=== PATIENT | male | born 1960 | race Caucasian/White ===

== ENCOUNTER 2016-11-14 10:59 | Emergency (ER) | payer MEDICAID, MEDICARE ==
--- NOTE | 2016-11-14 11:08 | Emergency Department Record ---
History of Present Illness - General Stated Complaint: BRE Time Seen by Provider: 11/14/16 11:00 Source: Patient Mode of Arrival: Ambulatory Limitations: No limitations - History of Present Illness Initial Comments: 56 yo male presents with cough and shortness of breath for several days. He is a smoker with COPD. He has not been to his doctor in [place] for a long time. His sister states he has run out of his medications. He has not had them for a few months. His cough is productive. No blood. He has pain with cough, breathing and activity. He has been gradually worsening over several days. No blood in the sputum. He states he does not fill his prescriptions for financial reasons Complaint: Pain with inspiration, Shortness of breath -: Days(s) Severity: Severe Quality: Aching Consistency: Constant Improves With: Nothing Worsens With: Coughing Known History Of: COPD Context: Recent illness Associated Symptoms: Cough Treatments Prior to Arrival: None - Related Data Home Oxygen Therapy: No Home Medications Medication Instructions Recorded Confirmed Last Taken Fluticasone/Salmeterol [Advair 1 puff IH BID 11/14/16 11/14/16 Unknown 250-50 Diskus] Montelukast Sodium [Singulair] 10 mg PO QHS 11/14/16 11/14/16 Unknown Previous Rx's Medication Instructions Recorded Azithromycin [Zithromax] 250 mg PO DAILY #4 tablet 11/14/16 Benzonatate [Tessalon Perle] 100 mg PO Q6H #20 capsule 11/14/16 Prednisone [Prednisone 20Mg] 20 mg PO BID #10 tab 11/14/16 Allergies Allergy/AdvReac Type Severity Reaction Status Date / Time No Known Drug Allergies Allergy Verified 11/14/16 11:22 Review of Systems Constitutional: Denies: Chills, Fever, Malaise, Weakness Eyes: Denies: Eye discharge, Eye pain, Photophobia, Vision change ENT: Reports: Congestion, Throat pain Respiratory: Reports: Cough, Dyspnea, Wheezes. Denies: Hemoptysis, Stridor Cardiovascular: Reports: Chest pain (with cough). Denies: Palpitations, Syncope Endocrine: Denies: Fatigue, Polydipsia, Polyuria Gastrointestinal: Denies: Abdominal pain, Diarrhea, Nausea, Vomiting Genitourinary: Denies: Dysuria, Frequency, Hematuria, Urgency Musculoskeletal: Denies: Arthralgia, Back pain, Myalgia Skin: Denies: Bruising, Change in color, Rash Neurological: Denies: Headache, Numbness, Weakness Psychiatric: Denies: Anxiety Hematological/Lymphatic: Denies: Blood Clots, Easy bleeding, Easy bruising, Swollen glands Past Medical History - SOCIAL HISTORY Smoking Status: Light tobacco smoker (<10/day) - RESPIRATORY Hx Respiratory Disorders: Yes Hx COPD: Yes - CARDIOVASCULAR Hx Cardio Disorders: No - NEURO Hx Neuro Disorders: No - GI Hx GI Disorders: No - Hx Genitourinary Disorders: Yes Hx Bladder Problem: Yes (Tumor removed) - ENDOCRINE Hx Endocrine Disorders: No - MUSCULOSKELETAL Hx Musculoskeletal Disorders: Yes Hx Back Injury: Yes - PSYCH Hx Psych Problems: Yes Hx Anxiety: Yes (now resolved) Hx Suicide Attempt: Yes - HEMATOLOGY/ONCOLOGY Hx Hematology/Oncology Disorders: No Family Medical History Hx Cancer: Mother, Brother/Sister Hx Diabetes: Father Hx Heart Disease: Mother Hx HTN: Mother Hx Kidney Disease: Brother/Sister Hx Resp Disorders: Father Physical Exam - General General Appearance: Alert, Oriented x3, Cooperative, Mild distress, Anxious Limitations: No limitations - Head Head exam: Atraumatic, Normocephalic, Normal inspection - Eye Eye exam: Normal appearance. negative: Conjunctival injection, Periorbital swelling - ENT ENT exam: Normal exam, Mucous membranes moist Ear exam: Normal external inspection Nasal Exam: Normal inspection Mouth exam: Normal external inspection - Neck Neck exam: Normal inspection. negative: Lymphadenopathy, Tenderness - Respiratory Respiratory exam: Accessory muscle use, Chest wall tenderness, Decreased breath sounds, Prolonged expiratory, Respiratory distress, Rhonchi, Wheezes. negative : Normal lung sounds bilaterally - Cardiovascular Cardiovascular Exam: Regular rate, Normal rhythm, Normal heart sounds Peripheral Pulses: 2+: Radial (R), Radial (L) - GI/Abdominal GI/Abdominal exam: negative: Tenderness - Rectal Rectal exam: Deferred - exam: Deferred - Extremities Extremities exam: Normal inspection, Full ROM, Normal capillary refill. negative: Pedal edema, Tenderness - Back Back exam: Reports: Normal inspection, Full ROM. Denies: CVA tenderness (R), CVA tenderness (L), Muscle spasm, Paraspinal tenderness, Rash noted, Tenderness , Vertebral tenderness - Neurological Neurological exam: Alert, Normal gait, Oriented X3 - Psychiatric Psychiatric exam: Anxious - Skin Skin exam: Dry, Intact, Normal color, Warm Course - Reevaluation(s) Reevaluation #1: EKG 10:58 NSR rate at 98, intervals normal, axis normal, ST NS changes. no ST elevation. no old ekg. 11/14/16 11:08 11/14/16 11:17 After a treatment the patient is doing much better His room air saturation is 97% 11/14/16 11:45 No acute changes on the CBC or CMP The D-dimer is normal at less than 0.50 11/14/16 12:11 The Troponin is negative after several days of symptoms 11/14/16 12:26 The patient is feeling much better and he states he is ready for DC His room air saturation is 95% He is fully conversational without dyspnea We discussed home care, home medications, reasons for a return to the ED immediately and close follow up with the PCP Medical Decision Making - Lab Data Result diagrams: 11/14/16 11:00 11/14/16 11:00 Disposition Disposition: Discharge Clinical Impression: COPD exacerbation Disposition: Home, Self-Care Condition: (1) Good Instructions: COPD (Chronic Obstructive Pulmonary Disease) (ED) Additional Instructions: Return immediately if short of breath, fever or any new concerns Call your doctor for close followup of this ER visit No smoking Take the Prednisone, Zithromax, and Tessalon as directed Prescriptions: Azithromycin [Zithromax] 250 mg PO DAILY #4 tablet Benzonatate [Tessalon Perle] 100 mg PO Q6H #20 capsule Prednisone [Prednisone 20Mg] 20 mg PO BID #10 tab Referrals: Moriah Haney, L.M.S.WDenny [Director [facility] [employer] [facility]] - Forms: Patient Portal Access Time of Disposition: 12:32 Quality - Quality Measures Quality Measures: N/A - Blood Pressure Screening Does Patient Have Any of the Following: No Blood Pressure Classification: Normal BP Reading Systolic Measurement: 116 Diastolic Measurement: 73 Screening for High Blood Pressure: < Normal BP, F/U Not Required > [G8783] Pre-Hypertensive Follow-up Interventions: Referral to alternative/primary care provider.
[2016-11-14] MEDS: IPRATROPIUM/ALBUTEROL (0.5MG/3MG) NEB INH ONE (11:13)
[2016-11-14] MEDS: METHYLPREDNISOLONE PF 125MG/VIAL IVP ONE (11:13)
[2016-11-14 11:21] LABS: BASO % 0.2 % (0-6); GRAN % 74.6 % (47-80); HEMATOCRIT 47.7 % (42.0-52.0); HEMOGLOBIN 16.5 gm/dl (14.0-18.0); LYMPH % 14.3 % (16-45); MEAN CELL VOLUME 82.7 fl (81-97); MEAN CORPUSCULAR HGB CONC 34.6 g/dl (32-36); MEAN PLATELET VOLUME 9.9 fl (7.4-10.4); MONO % 7.9 % (0-9); PLATELET COUNT 320 K/uL (130-400); RED BLOOD COUNT 5.77 M/uL (4.40-5.70); RED CELL DISTRIBUTION WIDTH 14.2 % (11.5-14.5); WHITE BLOOD COUNT W/O DIFF 11.6 K/uL (4.2-12.2)
[2016-11-14] MEDS: AZITHROMYCIN 500 MG TABLET PO ONE (11:28)
[2016-11-14] MEDS: BENZONATATE 100 MG CAPSULE PO ONE ×2 (11:28→15:50)
[2016-11-14 11:30] LABS: PARTIAL THROMBOPLASTIN TIME 33.4 SECONDS (24.5-39.1)
[2016-11-14 11:33] LABS: MEAN CORPUSCULAR HEMOGLOBIN 28.5 pg (27-33)
[2016-11-14 11:38] LABS: ALB/GLOB RATIO 1.1 (1.1-1.8); ALBUMIN 3.9 g/dL (4.0-5.0); ALKALINE PHOSPHATASE 92 U/L (40-129); ALT/SGPT 9 U/L (<41); AST/SGOT 12 U/L (10.0-50.0); BLOOD UREA NITROGEN 12 mg/dL (6-20); CREATININE 0.7 mg/dL (0.7-1.2); EST GLOMERULAR FILTRATION RATE > 60 mL/min; GLUCOSE,RANDOM 98 mg/dL (74-109); TOTAL PROTEIN 7.5 g/dL (6.6-8.7)
[2016-11-14] MEDS: IPRATROPIUM/ALBUTEROL 4 GM INH INH ONE (11:40)
[2016-11-14 11:46] LABS: TROPONIN I < 0.30 ng/mL (0.00-0.300)
[2016-11-14] MEDS: AZITHROMYCIN 250 MG TABLET PO ONE (15:50)
[2016-11-14] MEDS: PREDNISONE 20 MG TAB PO ONE (15:51)
--- NOTE | 2016-11-15 11:01 | RADIOLOGY REPORT ---
EXAM: CHEST, FRONTAL VIEW HISTORY: CHEST PAIN. TECHNIQUE: A single frontal view of the chest was obtained. Comparison: 03/22/13 chest. FINDINGS: The heart size is normal. There is underlying emphysema. Osteopenia. The lungs appear clear. No pneumothorax. IMPRESSION: EMPHYSEMA. NO ACUTE CARDIOPULMONARY PROCESS. JOB NUMBER: [id number] MTDD
== END 2016-11-14 13:05 | disposition home or self-care (01) ==
LOC: ER 10:59
DX: J44.1 Chronic obstructive pulmonary disease with (acute) exacerbation (principal); R06.02 Shortness of breath; F17.210 Nicotine dependence, cigarettes, uncomplicated
CPT/HCPCS: 99284 ×2; 96374; 85025; 85730; 84484; 80053; 85379; 71010; 94640 ×2; 93005; 93010; J7512; J2930

== ENCOUNTER 2017-07-25 09:20 | Emergency (ER) | payer MEDICARE ==
[2017-07-25] MEDS ORDERED: 0.9 % SODIUM CHLORIDE 1,000 ML BAG IV ONE (09:25)
[2017-07-25] MEDS ORDERED: LORAZEPAM 2 MG/ML VIAL IV ONE (09:26)
[2017-07-25] MEDS ORDERED: ONDANSETRON HCL IV 4 MG/2 ML VIAL IVP ONE (09:26)
[2017-07-25] MEDS ORDERED: IPRATROPIUM/ALBUTEROL (0.5MG/3MG) NEB INH ONE (09:26)
[2017-07-25] MEDS ORDERED: METHYLPREDNISOLONE PF 125MG/VIAL IVP ONE (09:26)
--- NOTE | 2017-07-25 09:32 | Emergency Department Record ---
History of Present Illness - General Chief Complaint: Cough Stated Complaint: COUGH Source: Patient Mode of Arrival: Ambulatory Limitations: No limitations - History of Present Illness Initial Comments: 57 yo male presents with two concerns. He has COPD. His cough has worsened over the last month. His is a life long smoker. No fevers or chest pain. His has yellow productive sputum. No blood in the sputum. Additionally he had Dr Shah as a PCP. His PCP recently closed his practice and not longer prescribes narcotics. Mr Palumbo has been on Oxycontin and Methadone for many years. His last dose was one week ago. He is weak, shaky, poor appetite, and anxious. No confusion. He has not been able to get a new PCP due to the narcotic issues. MD Complaint: Cough, Other (Narcotic withdrawal) -: Week(s) Severity: Moderate Quality: Other Consistency: Constant Improves With: Nothing Worsens With: Other (smoking) Context: Other (Out of medications) Associated Symptoms: Chills, Cough Treatments Prior to Arrival: Other - Related Data Previous Rx's Medication Instructions Recorded Prednisone [Prednisone 20Mg] 20 mg PO BID #10 tab 11/14/16 Azithromycin [Zithromax] 250 mg PO DAILY #6 tablet 07/25/17 Lorazepam [Ativan] 1 mg PO Q8H PRN #8 tablet 07/25/17 Ondansetron [Zofran Odt] 4 mg PO Q8H #15 tab.rapdis 07/25/17 Allergies Allergy/AdvReac Type Severity Reaction Status Date / Time No Known Drug Allergies Allergy Verified 07/25/17 09:22 Review of Systems Constitutional: Reports: Chills, Malaise, Weakness Eyes: Denies: Photophobia, Vision change ENT: Denies: Congestion, Throat pain Respiratory: Reports: Cough, Dyspnea, Wheezes Cardiovascular: Denies: Chest pain, Palpitations, Syncope Endocrine: Reports: Fatigue Gastrointestinal: Reports: Nausea, Vomiting. Denies: Abdominal pain, Constipation, Diarrhea, Hematemesis, Hematochezia Genitourinary: Denies: Discharge, Dysuria, Frequency, Hematuria Musculoskeletal: Reports: Back pain (chronic). Denies: Arthralgia, Myalgia Skin: Denies: Bruising, Change in color, Rash Neurological: Reports: Tremors, Weakness Psychiatric: Reports: Anxiety Hematological/Lymphatic: Denies: Easy bleeding, Easy bruising, Swollen glands Past Medical History - SOCIAL HISTORY Smoking Status: Light tobacco smoker (<10/day) - RESPIRATORY Hx Respiratory Disorders: Yes Hx COPD: Yes - CARDIOVASCULAR Hx Cardio Disorders: No - NEURO Hx Neuro Disorders: No - GI Hx GI Disorders: No - Hx Genitourinary Disorders: Yes Hx Bladder Problem: Yes (Tumor removed) - ENDOCRINE Hx Endocrine Disorders: No - MUSCULOSKELETAL Hx Musculoskeletal Disorders: Yes Hx Back Injury: Yes - PSYCH Hx Psych Problems: Yes Hx Anxiety: Yes (now resolved) Hx Suicide Attempt: Yes - HEMATOLOGY/ONCOLOGY Hx Hematology/Oncology Disorders: No Family Medical History Hx Cancer: Mother, Brother/Sister Hx Diabetes: Father Hx Heart Disease: Mother Hx HTN: Mother Hx Kidney Disease: Brother/Sister Hx Resp Disorders: Father Physical Exam - General General Appearance: Alert, Oriented x3, Cooperative, No acute distress Limitations: No limitations - Head Head exam: Atraumatic, Normal inspection - Eye Eye exam: Normal appearance, Conjunctival injection - ENT ENT exam: Normal exam, Mucous membranes moist Ear exam: Normal external inspection Nasal Exam: Normal inspection Mouth exam: Normal external inspection - Neck Neck exam: Normal inspection, Full ROM. negative: Tenderness - Respiratory Respiratory exam: Decreased breath sounds, Prolonged expiratory, Wheezes. negative: Normal lung sounds bilaterally, Accessory muscle use, Respiratory distress, Rhonchi, Stridor - Cardiovascular Cardiovascular Exam: Regular rate, Normal rhythm, Normal heart sounds Peripheral Pulses: 2+: Radial (R), Radial (L) - GI/Abdominal GI/Abdominal exam: Soft. negative: Tenderness - Rectal Rectal exam: Deferred - exam: Deferred - Extremities Extremities exam: Normal inspection, Full ROM, Normal capillary refill. negative: Tenderness - Back Back exam: Denies: CVA tenderness (R), CVA tenderness (L) - Neurological Neurological exam: Alert, CN II-XII intact, Oriented X3. negative: Altered, Motor sensory deficit - Psychiatric Psychiatric exam: Anxious - Skin Skin exam: Dry, Intact, Normal color, Warm Course - Reevaluation(s) Reevaluation #1: The vitals were reviewed. HR 105. 07/25/17 09:34 07/25/17 10:24 No acute changes on the labs 07/25/17 10:37 The patient is feeling much better He has been off narcotics one week. He has been through the worst expected period of withdrawal. He has seen a [facility] for intake into a new clinic. He will follow up with them. He will be given a limited Rx for Ativan, Zofran, and antibiotic for his cough. His vitals are improved. He clinically does not appear to be actively withdrawing. Stable for DC 07/25/17 10:45 He reports to me he has all his COPD medications Medical Decision Making - Lab Data Result diagrams: 07/25/17 09:40 07/25/17 09:40 Disposition Disposition: Discharge Clinical Impression: COPD exacerbation Disposition: Home, Self-Care Condition: (1) Good Instructions: COPD (Chronic Obstructive Pulmonary Disease) (ED), Opioid Withdrawal (ED) Additional Instructions: Continue to follow up in the new doctor office Return or be seen if worse, vomiting or any concerns Take Tylenol or Motrin as directed for pain You may take the Ativan every 8 hours then next 24 hours then space out the doses to every 12 to 24 hours The Zofran is to be used as needed for nausea Prescriptions: Azithromycin [Zithromax] 250 mg PO DAILY #6 tablet Lorazepam [Ativan] 1 mg PO Q8H PRN #8 tablet PRN Reason: Anxiety Ondansetron [Zofran Odt] 4 mg PO Q8H #15 tab.rapdis Forms: Patient Portal Access Quality - Quality Measures Quality Measures: N/A - Blood Pressure Screening Does Patient Have Any of the Following: No Blood Pressure Classification: Hypertensive Reading Systolic Measurement: 130 Diastolic Measurement: 97 Screening for High Blood Pressure: < Pre-Hypertensive BP, F/U Documented > [ G8950] Pre-Hypertensive Follow-up Interventions: Referral to alternative/primary care provider.
[2017-07-25 09:48] LABS: BASO % 0.8 % (0-6); EOS % 2.8 % (0-6); GRAN % 66.6 % (47-80); HEMATOCRIT 50.5 % (42.0-52.0); HEMOGLOBIN 17.7 gm/dl (14.0-18.0); LYMPH % 21.9 % (16-45); MEAN CELL VOLUME 86.8 fl (81-97); MEAN CORPUSCULAR HEMOGLOBIN 30.4 pg (27-33); MEAN PLATELET VOLUME 9.6 fl (7.4-10.4); MONO % 7.9 % (0-9); PLATELET COUNT 336 K/uL (130-400); RED BLOOD COUNT 5.82 M/uL (4.40-5.70); RED CELL DISTRIBUTION WIDTH 13.4 % (11.5-14.5); WHITE BLOOD COUNT W/O DIFF 8.5 K/uL (4.2-12.2)
[2017-07-25 09:58] LABS: BLOOD UREA NITROGEN 11 mg/dL (6-20); CREATININE 0.7 mg/dL (0.7-1.2); EST GLOMERULAR FILTRATION RATE > 60 mL/min; TOTAL PROTEIN 7.6 g/dL (6.6-8.7)
[2017-07-25 10:00] LABS: GLUCOSE,RANDOM 118 mg/dL (74-109)
[2017-07-25 10:03] LABS: ALB/GLOB RATIO 1.7 (1.1-1.8); ALBUMIN 4.8 g/dL (4.0-5.0); ALKALINE PHOSPHATASE 69 U/L (40-129); ALT/SGPT 16 U/L (<41); AST/SGOT 16 U/L (10.0-50.0)
--- NOTE | 2017-07-26 14:18 | RADIOLOGY REPORT ---
EXAM: CHEST, TWO VIEWS HISTORY: COUGH FOR A MONTH. COPD. TECHNIQUE: PA and lateral views of the chest were obtained. Comparison: AP chest 11/24/16. FINDINGS: The heart is not enlarged. The lungs do appear hyperinflated suggesting underlying COPD. Some minor scattered interstitial prominence is similar to before and probably represents some fibrosis. No definite acute alveolar infiltrate identified. Hypertrophic spurring in the spine. Some stippled sclerosis in the left humeral head may be a small enchondroma or even bone infarct. IMPRESSION: 1. HYPERINFLATION CONSISTENT WITH COPD. 2. THERE IS PROBABLY SOME MILD SCATTERED FIBROSIS, BUT NO ACUTE ALVEOLAR INFILTRATE SEEN. 3. HYPERTROPHIC SPURRING IN THE SPINE. 4. SOME STIPPLED SCLEROSIS IN THE LEFT HUMERAL HEAD WHICH MAY BE A SMALL ENCHONDROMA OR BONE INFARCT. JOB NUMBER: [id number] [facility]
== END 2017-07-25 10:56 | disposition home or self-care (01) ==
LOC: ER 09:20
DX: J44.1 Chronic obstructive pulmonary disease with (acute) exacerbation (principal); R53.1 Weakness; F11.23 Opioid dependence with withdrawal; F17.210 Nicotine dependence, cigarettes, uncomplicated
CPT/HCPCS: 99284 ×2; 96374; 96375; 85025; 80053; 71046; 94640; J2405; J2060; J2930; J7030

== ENCOUNTER 2017-07-27 14:43 | Emergency (ER) | payer MEDICARE ==
[2017-07-27] MEDS ORDERED: ACETAMINOPHEN 1,000 MG/100 ML BTL IVPB ONE (15:08)
--- NOTE | 2017-07-27 15:15 | Emergency Department Record ---
History of Present Illness - General Chief Complaint: Difficulty Breathing Stated Complaint: BRE,PAIN ALL OVER Time Seen by Provider: 07/27/17 14:45 Source: Patient, Family Mode of Arrival: EMS Limitations: No limitations - History of Present Illness Initial Comments: The patient is here with his son do to going out for a walk about an hour ago and coming home and becoming very SOB. The patient states he thinks he overdid it with the walk. When he got home he fell to his knees on a carpeted floor and told his son he did not feel right. The patient also is having mild chest aching with the BRE but he states that is a chronic problem for him. He has had colored phlegm with the cough but that also is chronic at times with his COPD. The patient also is presently going thru the end of narcotic withdrawal due to running out of his Methadone about 10 days ago. He had been on it for years but was cut off recently. He was in the ER here 2 days ago with similar complaints as today and was discharged on a short course of Ativan. MD Complaint: Shortness of breath Onset/Timin -: Minutes(s) Known History Of: COPD, Other Associated Symptoms: Other Treatments Prior to Arrival: None - Related Data Home Oxygen Therapy: No Home Medications Medication Instructions Recorded Confirmed Last Taken Methadone HCl 10 mg PO ASDIR 07/27/17 07/27/17 Unknown Previous Rx's Medication Instructions Recorded Prednisone [Prednisone 20Mg] 20 mg PO BID #10 tab 11/14/16 Azithromycin [Zithromax] 250 mg PO DAILY #6 tablet 07/25/17 Lorazepam [Ativan] 1 mg PO Q8H PRN #8 tablet 07/25/17 Ondansetron [Zofran Odt] 4 mg PO Q8H #15 tab.rapdis 07/25/17 Allergies Allergy/AdvReac Type Severity Reaction Status Date / Time No Known Drug Allergies Allergy Verified 07/27/17 14:57 Travel Screening - Travel/Exposure Within Last 30 Days Have you traveled within the last 30 days?: No - Travel/Exposure Within Last Year Have you traveled outside the [place] in the last year?: No - Additonal Travel Details Have you been exposed to anyone with a communicable illness?: No - Travel Symptoms Symptom Screening: None Review of Systems Constitutional: Denies: Chills, Fever Eyes: Denies: Eye discharge ENT: Denies: Congestion Respiratory: Reports: Cough, Dyspnea. Denies: Hemoptysis, Stridor, Wheezes Cardiovascular: Reports: Dyspnea on exertion. Denies: Arrhythmia Endocrine: Reports: Fatigue Gastrointestinal: Denies: Abdominal pain Genitourinary: Denies: Dysuria Musculoskeletal: Denies: Arthralgia Past Medical History - SOCIAL HISTORY Smoking Status: Light tobacco smoker (<10/day) - RESPIRATORY Hx Respiratory Disorders: Yes Hx COPD: Yes - CARDIOVASCULAR Hx Cardio Disorders: No - NEURO Hx Neuro Disorders: No - GI Hx GI Disorders: No - Hx Genitourinary Disorders: Yes Hx Bladder Problem: Yes (Tumor removed) - ENDOCRINE Hx Endocrine Disorders: No - MUSCULOSKELETAL Hx Musculoskeletal Disorders: Yes Hx Back Injury: Yes - PSYCH Hx Psych Problems: Yes Hx Anxiety: Yes (now resolved) Hx Suicide Attempt: Yes - HEMATOLOGY/ONCOLOGY Hx Hematology/Oncology Disorders: No Family Medical History Any Significant Family History?: No Hx Cancer: Mother, Brother/Sister Hx Diabetes: Father Hx Heart Disease: Mother Hx HTN: Mother Hx Kidney Disease: Brother/Sister Hx Resp Disorders: Father Physical Exam - General General Appearance: Alert, Oriented x3, Cooperative, Anxious (mildly.) - Head Head exam: Atraumatic, Normocephalic, Normal inspection - Eye Eye exam: Normal appearance, PERRL, EOMI - ENT Throat exam: Normal inspection. negative: Tonsillar erythema, Tonsillar exudate - Neck Neck exam: Normal inspection, Full ROM. negative: Tenderness - Respiratory Respiratory exam: Normal lung sounds bilaterally. negative: Respiratory distress - Cardiovascular Cardiovascular Exam: Regular rate, Normal rhythm, Normal heart sounds - GI/Abdominal GI/Abdominal exam: Soft, Normal bowel sounds. negative: Tenderness - Extremities Extremities exam: Full ROM, Tenderness (There is very mild tenderness to the anterior knees bilaterally over the patellas with mild erythema. There is no joint effusion or ligamentous laxiety. ). negative: Normal inspection, Normal capillary refill - Neurological Neurological exam: Alert, Oriented X3. negative: Motor sensory deficit - Psychiatric Psychiatric exam: Anxious Course Vital Signs 07/27/17 14:46 Temperature 97.7 F Pulse Rate 94 H Respiratory 22 Rate Blood Pressure 139/93 Pulse Ox 98 - Reevaluation(s) Reevaluation #1: The patient is doing a lot better at this time. He is much more calm and no longer anxious. He states he feels much better presently and is basically back to normal except for his chronic pain syndrome. We will give him some Toradol for pain. 07/27/17 15:47 Reevaluation #2: The patient is resting comfortably and is feeling much better. He now believes he was just having a panic attack after getting back from his walk. I did explain to him that I wanted to observe him for 2 more hours in the ED and also check another set of cardiac enzymes. The patient is very cooperative but would like to leave. I did explain to him that he would need to leave AMA and he agreed. I explained to him that the risks of leaving are that he could go home and have an WA, stroke, become disabled and . The patient presently has proper decision making capacity and accepts the risks. He is to return to the ER at any time for recheck if needed. 07/27/17 16:52 Medical Decision Making - Data Complexity MDM Data: Labs Ordered and/or Reviewed, X-Ray Ordered and/or Reviewed, EKG Ordered and/or Reviewed - Lab Data Result diagrams: 07/27/17 14:50 07/27/17 14:50 - EKG Data -: EKG Interpreted by Me EKG: No Acute Changes, Normal EKG, Unchanged From Previous - Radiology Data Radiology results: Report reviewed (CXR; COPD with possible fibrosis, No change from old. Head CT: No acute changes.) Disposition Disposition: Discharge Clinical Impression: COPD exacerbation Disposition: Against Medical Advice Condition: (2) Stable Instructions: Dyspnea (ED) Additional Instructions: Please continue your regular medicines and take the Ativan if needed. Please see your family doctor CABRERA to have your multiple issues evaluated. Return to the ER for any chest pain, shortness of breath, fever, or difficulty breathing. Forms: Patient Portal Access Time of Disposition: 16:55 Quality - Quality Measures Quality Measures: N/A - Blood Pressure Screening View Details: Yes Does Patient Have Any of the Following: No Blood Pressure Classification: Pre-Hypertensive BP Reading Systolic Measurement: 135 Diastolic Measurement: 72 Screening for High Blood Pressure: < Pre-Hypertensive BP, F/U Documented > [ G8950] Pre-Hypertensive Follow-up Interventions: Referral to alternative/primary care provider.
[2017-07-27 15:21] LABS: BASO % 0.5 % (0-6); EOS % 1.5 % (0-6); GRAN % 68.6 % (47-80); HEMATOCRIT 48.3 % (42.0-52.0); HEMOGLOBIN 16.8 gm/dl (14.0-18.0); LYMPH % 22.2 % (16-45); MEAN CORPUSCULAR HEMOGLOBIN 30.3 pg (27-33); MEAN CORPUSCULAR HGB CONC 34.8 g/dl (32-36); MEAN PLATELET VOLUME 10.1 fl (7.4-10.4); MONO % 7.2 % (0-9); PLATELET COUNT 323 K/uL (130-400); RED BLOOD COUNT 5.55 M/uL (4.40-5.70); RED CELL DISTRIBUTION WIDTH 13.7 % (11.5-14.5); WHITE BLOOD COUNT W/O DIFF 9.8 K/uL (4.2-12.2)
[2017-07-27 15:33] LABS: BLOOD UREA NITROGEN 16 mg/dL (6-20); CREATININE 0.8 mg/dL (0.7-1.2); EST GLOMERULAR FILTRATION RATE > 60 mL/min
[2017-07-27 15:34] LABS: TOTAL PROTEIN 6.9 g/dL (6.6-8.7)
[2017-07-27 15:36] LABS: GLUCOSE,RANDOM 113 mg/dL (74-109)
[2017-07-27 15:37] LABS: PARTIAL THROMBOPLASTIN TIME 29.4 SECONDS (24.5-39.1); PROTHROMBIN TIME (PATIENT) 11.2 SECONDS (9.5-12.1)
[2017-07-27 15:38] LABS: ALB/GLOB RATIO 1.9 (1.1-1.8); ALBUMIN 4.5 g/dL (4.0-5.0); ALKALINE PHOSPHATASE 63 U/L (40-129); ALT/SGPT 14 U/L (<41); AST/SGOT 13 U/L (10.0-50.0)
[2017-07-27 15:39] LABS: CREATINE PHOSPHOKINASE 42 U/L (39-308)
[2017-07-27 15:44] LABS: CKMB 1.6 ng/mL (<6.73)
[2017-07-27] MEDS ORDERED: KETOROLAC 30 MG/ML VIAL IVP ONE (15:46)
[2017-07-27 15:52] LABS: THYROID STIMULATING HORMONE 1.44 uIU/mL (0.270-4.20)
[2017-07-27 16:26] LABS: URINE APPEARANCE CLEAR; URINE BILIRUBIN SMALL (NEGATIVE); URINE BLOOD NEGATIVE (NEGATIVE); URINE COLOR ORANGE; URINE GLUCOSE (UA) NEGATIVE (NEGATIVE); URINE KETONE TRACE (NEGATIVE); URINE LEUKOCYTE ESTERASE NEGATIVE (NEGATIVE); URINE NITRITE NEGATIVE (NEGATIVE); URINE PROTEIN NEGATIVE (NEGATIVE); URINE UROBILINOGEN 0.2 E.U./dL (0.20 - 1.00)
[2017-07-27 16:30] LABS: AMPHETAMINE SCREEN URINE NOT DETECTED; BARBITURATE SCREEN URINE NOT DETECTED; BENZODIAZEPINE SCREEN URINE DETECTED; COCAINE SCREEN URINE NOT DETECTED; METHADONE SCREEN URINE DETECTED; METHAMPHETAMINE SCREEN NOT DETECTED; OPIATE SCREEN URINE NOT DETECTED; OXYCODONE SCREEN URINE NOT DETECTED; PHENCYCLIDINE SCREEN URINE NOT DETECTED; PROPOXYPHENE SCREEN URINE NOT DETECTED; THC SCREEN URINE DETECTED; TRICYCLIC ANTIDEPRESSANT SCRN DETECTED
[2017-07-27] MEDS ORDERED: 0.9 % SODIUM CHLORIDE 1,000 ML BAG IV ONE (16:37)
[2017-07-27] MEDS ORDERED: LORAZEPAM 0.5 MG TABLET PO ONE (16:55)
--- NOTE | 2017-07-28 15:07 | RADIOLOGY REPORT ---
EXAM: CHEST, TWO VIEWS HISTORY: DIFFICULTY IN BREATHING, WEAKNESS, ANXIOUS. TECHNIQUE: AP semi-upright and lateral views of the chest were obtained. Comparison: Two view chest 07/25/17. FINDINGS: The lungs again appear hyperinflated suggesting COPD. Minor scattered interstitial prominence similar to before. No definite progressive infiltrate identified compared to the prior study. Hypertrophic spurring in the spine. No pleural effusion or pneumothorax evident. Some stippled sclerosis in the left humeral head again partially seen, probably a small enchondroma or bone infarct as previously reported. IMPRESSION: 1. HYPERINFLATION CONSISTENT WITH COPD BEFORE. 2. SOME MILD INTERSTITIAL PROMINENCE PARTICULARLY IN THE UPPER LUNGS LATERALLY SIMILAR TO BEFORE. NO DEFINITE PROGRESSIVE INFILTRATE SEEN. 3. HYPERTROPHIC SPURRING IN THE SPINE. JOB NUMBER: [id number] MTDD
--- NOTE | 2017-07-28 15:11 | CT SCAN REPORT ---
EXAM: EMERGENCY HEAD CT WITHOUT CONTRAST HISTORY: CONFUSION. TECHNIQUE: Axial CT scan of the head was performed without IV contrast. Comparison: None. FINDINGS: No definite acute intracranial hemorrhage identified. No focal mass effect or midline shift apparent. Mild generalized atrophy. There is probably a large postop defect in the left mastoid. Correlation with the surgical history is suggested as no such history was provided. There is some deviation of the nasal septum to the right. IMPRESSION: 1. MILD GENERALIZED ATROPHY. 2. THERE IS PROBABLY A POSTOP CHANGE INVOLVING THE LEFT MASTOID. 3. NO ACUTE INTRACRANIAL HEMORRHAGE OR FOCAL MASS EFFECT EVIDENT. [facility]BER: [id number] [facility]
== END 2017-07-27 17:15 | disposition left against medical advice (07) ==
LOC: ER 14:43
DX: J44.1 Chronic obstructive pulmonary disease with (acute) exacerbation (principal); R06.02 Shortness of breath; R07.9 Chest pain, unspecified; F17.210 Nicotine dependence, cigarettes, uncomplicated; F11.23 Opioid dependence with withdrawal
CPT/HCPCS: 70450; 71046; 80053; 80305; 81003; 82550; 82553; 84443; 84484; 85025; 85379; 85610; 85730; 93005; 93010; 96365; 96375; 99284; J1885; J7030

== ENCOUNTER 2018-01-30 18:56 | Observation (INO) | payer MEDICARE ==
[2018-01-30] MEDS ORDERED: 0.9 % SODIUM CHLORIDE 1000ML 500 ML IV SCH (19:00)
--- NOTE | 2018-01-30 19:02 | Emergency Department Record ---
History of Present Illness - General Chief Complaint: Difficulty Breathing Stated Complaint: BRE/COUGH Time Seen by Provider: 01/30/18 18:58 Source: Patient, EMS Mode of Arrival: EMS Limitations: No limitations - History of Present Illness Initial Comments: 57 yo male presents to ED for evaluation of difficulty in breathing and productive cough symptoms for the past several days. Patient reports history of COPD, reports subjective fevers and chills as well. Patient does report having Oxygen at home for his COPD but reports that he has not been using it. Patient reports that recent family member was diagnosed with influenza as well. MD Complaint: Cough, Shortness of breath Onset/Timin -: Days(s) Severity: Moderate Quality: Aching Consistency: Constant Improves With: Nothing Worsens With: Nothing Known History Of: COPD Context: Recent illness, Recent URI Associated Symptoms: Denies other symptoms Treatments Prior to Arrival: None - Related Data Home Oxygen Therapy: Yes (as needed) Allergies Allergy/AdvReac Type Severity Reaction Status Date / Time No Known Drug Allergies Allergy Verified 01/30/18 19:03 Review of Systems Constitutional: Reports: Chills, Fever, Malaise. Denies: Night sweats Eyes: Denies: Eye discharge, Eye pain ENT: Denies: Congestion, Ear pain, Epistaxis Respiratory: Reports: Cough, Dyspnea. Denies: Hemoptysis Cardiovascular: Reports: Chest pain. Denies: Dyspnea on exertion Endocrine: Reports: Fatigue. Denies: Heat or cold intolerance Gastrointestinal: Denies: Abdominal pain, Nausea, Vomiting Genitourinary: Denies: Incontinence, Retention Musculoskeletal: Reports: Myalgia. Denies: Arthralgia, Back pain Skin: Denies: Bruising, Change in color Neurological: Denies: Abnormal gait, Confusion, Headache, Seizure Psychiatric: Denies: Anxiety Hematological/Lymphatic: Denies: Anemia, Blood Clots Past Medical History - SOCIAL HISTORY Smoking Status: Light tobacco smoker (<10/day) - RESPIRATORY Hx Respiratory Disorders: Yes Hx COPD: Yes - CARDIOVASCULAR Hx Cardio Disorders: No - NEURO Hx Neuro Disorders: No - GI Hx GI Disorders: No - Hx Genitourinary Disorders: Yes Hx Bladder Problem: Yes (Tumor removed) - ENDOCRINE Hx Endocrine Disorders: No - MUSCULOSKELETAL Hx Musculoskeletal Disorders: Yes Hx Back Injury: Yes - PSYCH Hx Psych Problems: Yes Hx Anxiety: Yes (now resolved) Hx Suicide Attempt: Yes - HEMATOLOGY/ONCOLOGY Hx Hematology/Oncology Disorders: No Family Medical History Hx Cancer: Mother, Brother/Sister Hx Diabetes: Father Hx Heart Disease: Mother Hx HTN: Mother Hx Kidney Disease: Brother/Sister Hx Resp Disorders: Father Physical Exam - General General Appearance: Alert, Oriented x3, Cooperative, Moderate distress Limitations: No limitations - Head Head exam: Atraumatic, Normocephalic, Normal inspection Head exam detail: negative: Abrasion, Contusion, Zuniga's sign, General tenderness, Hematoma, Laceration - Eye Eye exam: Normal appearance. negative: Conjunctival injection, Periorbital swelling, Periorbital tenderness, Scleral icterus - ENT Ear exam: negative: Auricular hematoma, Auricular trauma Nasal Exam: negative: Active bleeding, Discharge, Dried blood, Foreign body Mouth exam: negative: Drooling, Laceration, Muffled voice, Tongue elevation - Neck Neck exam: Normal inspection. negative: Meningismus, Tenderness - Respiratory Respiratory exam: Decreased breath sounds. negative: Rales, Respiratory distress, Rhonchi, Stridor - Cardiovascular Cardiovascular Exam: Regular rate, Normal rhythm, Normal heart sounds - GI/Abdominal GI/Abdominal exam: Soft. negative: Rebound, Rigid, Tenderness - Rectal Rectal exam: Deferred - exam: Deferred - Extremities Extremities exam: Normal inspection. negative: Pedal edema, Tenderness - Back Back exam: Denies: CVA tenderness (R), CVA tenderness (L) - Neurological Neurological exam: Alert, Oriented X3 - Psychiatric Psychiatric exam: Normal affect, Normal mood - Skin Skin exam: Normal color. negative: Abrasion Type of lesion: negative: abrasion Course - Reevaluation(s) Reevaluation #1: 01/30/18 19:15 EKG: NSR 95 Normal axis, normal intervals No acute ST-T wave changes No significant change from 07/27/17 Reevaluation #2: 01/30/18 19:34 Laboratory studies were reviewed: WBC 8.2 with 87% Neutrophils Troponin negative Influenza negative Reevaluation #3: 01/30/18 20:15 Case was discussed with Dr. Hall, will admit for further evaluation. Zithromax and Rocephin initiated in ED prior to admission as well. Medical Decision Making - Lab Data Result diagrams: 01/30/18 19:10 01/30/18 19:10 Disposition Disposition: Admit Clinical Impression: CAP (community acquired pneumonia) Qualifiers: Laterality: unspecified laterality Qualified Code(s): J18.9 - Pneumonia, unspecified organism COPD (chronic obstructive pulmonary disease) Qualifiers: COPD type: unspecified COPD Qualified Code(s): J44.9 - Chronic obstructive pulmonary disease, unspecified Disposition: Still a Patient at [facility] Decision to Admit: Admit from ER Decision to Admit Date: 01/30/18 Decision to Admit Time: 19:49 Condition: (2) Stable Time of Disposition: 19:49 Quality - Quality Measures Quality Measures: N/A - Blood Pressure Screening Does Patient Have Any of the Following: No Blood Pressure Classification: Pre-Hypertensive BP Reading Systolic Measurement: 136 Diastolic Measurement: 69 Screening for High Blood Pressure: < Pre-Hypertensive BP, F/U Documented > [ [id number]] Pre-Hypertensive Follow-up Interventions: Referral to alternative/primary care provider.
[2018-01-30] MEDS ORDERED: ACETAMINOPHEN 500 MG TABLET PO ONE (19:14)
[2018-01-30 19:16] LABS: BASO % 0.4 % (0-6); EOS % 1.2 % (0-6); HEMATOCRIT 46.2 % (42.0-52.0); HEMOGLOBIN 15.9 gm/dl (14.0-18.0); LYMPH % 3.4 % (16-45); MEAN CORPUSCULAR HEMOGLOBIN 29.9 pg (27-33); MEAN CORPUSCULAR HGB CONC 34.4 g/dl (32-36); MEAN PLATELET VOLUME 9.5 fl (7.4-10.4); MONO % 8.7 % (0-9); PLATELET COUNT 338 K/uL (130-400); RED BLOOD COUNT 5.31 M/uL (4.40-5.70); RED CELL DISTRIBUTION WIDTH 13.2 % (11.5-14.5); WHITE BLOOD COUNT W/O DIFF 8.2 K/uL (4.2-12.2)
[2018-01-30 19:21] LABS: INFLUENZA A NEGATIVE (NEGATIVE); INFLUENZA B NEGATIVE (NEGATIVE)
[2018-01-30 19:26] LABS: BLOOD UREA NITROGEN 11 mg/dL (6-20); CREATININE 0.8 mg/dL (0.7-1.2); EST GLOMERULAR FILTRATION RATE > 60 mL/min; TOTAL PROTEIN 7.3 g/dL (6.6-8.7)
[2018-01-30 19:28] LABS: GLUCOSE,RANDOM 172 mg/dL (74-109)
[2018-01-30 19:31] LABS: ALB/GLOB RATIO 1.5 (1.1-1.8); ALBUMIN 4.4 g/dL (4.0-5.0); ALKALINE PHOSPHATASE 101 U/L (40-129); ALT/SGPT 11 U/L (<41); AST/SGOT 14 U/L (10.0-50.0)
[2018-01-30] MEDS ORDERED: AZITHROMYCIN 500 MG TABLET PO ONE (19:41)
[2018-01-30] MEDS ORDERED: CEFTRIAXONE SODIUM 1 GM in 0.9 % SODIUM CHLORIDE 100ML 100 ML IVPB ONE (19:41)
[2018-01-30] MEDS ORDERED: KETOROLAC 30 MG/ML VIAL IVP ONE (19:51)
[2018-01-30] MEDS ORDERED: ALBUTEROL SULFATE (0.083%) 2.5 MG/3 ML NEB INH PRN (21:18)
[2018-01-30] MEDS: IPRATROPIUM/ALBUTEROL (0.5MG/3MG) NEB INH SCH (21:38)
[2018-01-30] MEDS: 0.9 % SODIUM CHLORIDE 1000ML 1,000 ML IV PRN (22:03)
[2018-01-30] MEDS: TRAMADOL HCL 50 MG TABLET PO PRN (22:04)
[2018-01-30] MEDS: CYCLOBENZAPRINE 10MG TABLET PO PRN (22:08)
[2018-01-31] MEDS: ONDANSETRON HCL IV 4 MG/2 ML VIAL IVP PRN ×2 (02:07→19:44)
[2018-01-31] MEDS: ACETAMINOPHEN 500 MG TABLET PO PRN ×3 (02:45→16:06)
[2018-01-31] MEDS: IPRATROPIUM/ALBUTEROL (0.5MG/3MG) NEB INH SCH ×5 (06:01→22:34)
--- NOTE | 2018-01-31 07:23 | RADIOLOGY REPORT ---
EXAM: CHEST, TWO VIEWS HISTORY: COUGH AND FEVER. TECHNIQUE: PA and lateral views of the chest were obtained. Comparison: Two view chest 07/27/17. FINDINGS: Stable heart size, within normal limits. The lungs again appear hyperinflated suggesting COPD. There is some diffuse interstitial infiltrate again seen which overall has probably changed relatively little in the interval and likely represents chronic fibrosis. Allowing for this, no definite acute infiltrate seen. No pleural effusion or pneumothorax evident. Prominent spurring in the mid to lower thoracic spine. There is a suggestion of some sclerotic like artifact overlying the proximal left humerus partially seen. These could also represent areas of bone infarct or enchondroma. If clinically desired, follow-up left humerus series could be obtained for further evaluation. IMPRESSION: 1. HYPERINFLATION CONSISTENT WITH COPD WITH SOME CHRONIC FIBROSIS IN THE LUNGS SIMILAR TO BEFORE. 2. NO DEFINITE ACUTE INFILTRATE SEEN. 3. PROMINENT SPURRING IN THE MID TO LOWER THORACIC SPINE. 4. QUESTIONABLE ARTIFACT OVERLYING THE PROXIMAL LEFT HUMERUS DESCRIBED ABOVE. JOB NUMBER: [id number] MTDD
[2018-01-31] MEDS: 0.9 % SODIUM CHLORIDE 1000ML 1,000 ML IV PRN ×2 (07:58→16:05)
--- NOTE | 2018-01-31 08:25 | History & Physical ---
History of Present Illness - Date of Service Date of Service for History & Physical: 01/31/18 - History of Present Illness Admitting Diagnosis: CAP. COPD exacerbation History of Present Illness: Mr. Palumbo is a 57 y/o male who presents with a 3 day history of cough productive of yellow sputum, fever and chills. The patient says that he has COPD and has not been compliant with his medication or oxygen use. He says that when he uses his inhaler he doesn't feel well and he has not used any other over the counter medication over the past few days. He has a long smoking history of 46 years and and says that he quit smoking 2 months ago. He denies chest pain, shortness of breath or headaches. ED course: CXR: shows hyperinflation consistent with COPD Vitals: BP 106/64, HR 89, Temp 100.1, RR 24, Sats 96% 2L Travel Screening - Travel/Exposure Within Last 30 Days Have you traveled within the last 30 days?: No - Travel/Exposure Within Last Year Have you traveled outside the [place] in the last year?: No - Additonal Travel Details Have you been exposed to anyone with a communicable illness?: Yes Exposure Details:: family member recently positive for flu - Travel Symptoms Symptom Screening: Fever (Subjective), Lack of Appetite Review of Systems Constitutional: Reports: Chills, Fever, Malaise. Denies: Night sweats Eyes: Denies: Eye discharge, Eye pain ENT: Denies: Congestion, Ear pain, Epistaxis Respiratory: Reports: Cough, Dyspnea. Denies: Hemoptysis Cardiovascular: Reports: Chest pain. Denies: Dyspnea on exertion Endocrine: Reports: Fatigue. Denies: Heat or cold intolerance Gastrointestinal: Denies: Abdominal pain, Nausea, Vomiting Genitourinary: Denies: Incontinence, Retention Musculoskeletal: Reports: Myalgia. Denies: Arthralgia, Back pain Skin: Denies: Bruising, Change in color Neurological: Denies: Abnormal gait, Confusion, Headache, Seizure Psychiatric: Denies: Anxiety Hematological/Lymphatic: Denies: Anemia, Blood Clots Past Medical History - SOCIAL HISTORY Smoking Status: Light tobacco smoker (<10/day) - RESPIRATORY Hx Respiratory Disorders: Yes Hx COPD: Yes - CARDIOVASCULAR Hx Cardio Disorders: No - NEURO Hx Neuro Disorders: No - GI Hx GI Disorders: No - Hx Genitourinary Disorders: Yes Hx Bladder Problem: Yes (Tumor removed) - ENDOCRINE Hx Endocrine Disorders: No - MUSCULOSKELETAL Hx Musculoskeletal Disorders: Yes Hx Back Injury: Yes - PSYCH Hx Psych Problems: Yes Hx Anxiety: Yes (now resolved) Hx Suicide Attempt: Yes - HEMATOLOGY/ONCOLOGY Hx Hematology/Oncology Disorders: No Family Medical History Hx Cancer: Mother, Brother/Sister Hx Diabetes: Father Hx Heart Disease: Mother Hx HTN: Mother Hx Kidney Disease: Brother/Sister Hx Resp Disorders: Father H&P Meds/Allergies - Allergies Allergies: Allergies Allergy/AdvReac Type Severity Reaction Status Date / Time No Known Drug Allergies Allergy Verified 01/30/18 19:03 - Active Medications Active Medications: Current Medications Acetaminophen (Tylenol 500mg Tab) 1,000 mg PO Q6H PRN PRN Reason: PAIN - MILD(1-4)/FEVER Last Admin: 01/31/18 02:45 Dose: 1,000 mg Albuterol Sulfate (Albuterol Sulfate) 2.5 mg INH RESP.Q2H PRN PRN Reason: DIFFICULTY IN BREATHING Albuterol/Ipratropium (Duoneb) 3 ml INH RESP.Q4H.[facility] Last Admin: 01/31/18 06:01 Dose: 3 ml Azithromycin (Zithromax) 500 mg PO DAILY [facility] Cyclobenzaprine HCl (Flexeril) 10 mg PO QHS PRN PRN Reason: PAIN - MOD TO SEVERE (5-10) Last Admin: 01/30/18 22:08 Dose: 10 mg Sodium Chloride () 1,000 mls @ 125 mls/hr IV .Q8H PRN PRN Reason: LARGE VOLUME IV Last Admin: 01/31/18 07:58 Dose: 125 mls/hr CEFTRIAXONE 1GM/50ML BAG (Ceftriaxone 1 Gm-D5w Bag) 1 gm in 50 mls @ 100 mls/ hr IVPB Q24H [facility] Methylprednisolone Sodium Succinate (Solu-Medrol) 60 mg IVP DAILY [facility] Ondansetron HCl (Zofran) 4 mg IVP Q6H PRN PRN Reason: NAUSEA Last Admin: 01/31/18 02:07 Dose: 4 mg Tramadol HCl (Ultram) 50 mg PO BID PRN PRN Reason: PAIN - MILD TO MODERATE (1-7) Last Admin: 01/30/18 22:04 Dose: 50 mg Physical Exam - Vital Signs Vital Signs: Vital Signs - Last 24 Hrs Temp Pulse Pulse Resp BP BP Pulse Ox 01/31/18 06:02 94 H 20 96 01/31/18 02:00 99.5 F 01/30/18 21:42 93 H 20 94 L 01/30/18 21:41 90 20 94 L 01/30/18 21:18 100.1 F H 89 24 106/64 96 01/30/18 21:03 99.5 F 86 16 122/60 95 01/30/18 20:35 100.1 F H 91 H 28 H 131/69 93 L 01/30/18 19:57 96 H 16 127/70 93 L 01/30/18 18:57 100.4 F H 101 H 24 136/69 93 L - General General Appearance: Alert, Oriented x3, Cooperative, Moderate distress Limitations: No limitations - Head Head exam: Atraumatic, Normocephalic, Normal inspection Head exam detail: negative: Abrasion, Contusion, Zuniga's sign, General tenderness, Hematoma, Laceration - Eye Eye exam: Normal appearance. negative: Conjunctival injection, Periorbital swelling, Periorbital tenderness, Scleral icterus - ENT Ear exam: negative: Auricular hematoma, Auricular trauma Nasal Exam: negative: Active bleeding, Discharge, Dried blood, Foreign body Mouth exam: negative: Drooling, Laceration, Muffled voice, Tongue elevation - Neck Neck exam: Normal inspection. negative: Meningismus, Tenderness - Respiratory Respiratory exam: Decreased breath sounds. negative: Rales, Respiratory distress, Rhonchi, Stridor - Cardiovascular Cardiovascular Exam: Regular rate, Normal rhythm, Normal heart sounds - GI/Abdominal GI/Abdominal exam: Soft. negative: Rebound, Rigid, Tenderness - Rectal Rectal exam: Deferred - exam: Deferred - Extremities Extremities exam: Normal inspection. negative: Pedal edema, Tenderness - Back Back exam: Denies: CVA tenderness (R), CVA tenderness (L) - Neurological Neurological exam: Alert, Oriented X3 - Psychiatric Psychiatric exam: Normal affect, Normal mood - Skin Skin exam: Normal color. negative: Abrasion Type of lesion: negative: abrasion Results - Labs Result Diagrams: 01/30/18 19:10 01/30/18 19:10 Labs Last 24 Hours: Laboratory Results - last 24 hr 01/30/18 01/30/18 01/30/18 18:58 19:10 19:10 WBC 8.2 RBC 5.31 Hgb 15.9 Hct 46.2 MCV 87.0 MCH 29.9 MCHC 34.4 RDW 13.2 Plt Count 338 MPV 9.5 Neutrophils % 87.0 H Band Neutrophils % 0.0 Lymphocytes % 3.4 L Monocytes % 8.7 Eosinophils % 1.2 Basophils % 0.4 Lymphocytes 3.0 L Monocytes 9.0 Basophils 0.0 Eosinophil Count 1.0 Sodium 135 L Potassium 4.1 Chloride 98 Carbon Dioxide 25.0 Anion Gap 12.0 BUN 11 Creatinine 0.8 Estimated GFR > 60 Random Glucose 172 H Calcium 9.4 Total Bilirubin 0.40 AST 14 ALT 11 Alkaline Phosphatase 101 Troponin T < 0.010 Total Protein 7.3 Albumin 4.4 Globulin 2.9 Albumin/Globulin Ratio 1.5 Influenza Type A Ag Negative Influenza Type B Ag Negative VTE H&P Assessment - Risk for VTE Risk for VTE: Yes Risk Level: Moderate Risk Assessment Date: 01/31/18 Risk Assessment Time: 10:34 VTE Orders Placed or Will Be Placed: Yes Plan - Detailed Diagnosis and Plan (1) COPD (chronic obstructive pulmonary disease) Current Visit: Yes Status: Acute Qualifiers: COPD type: COPD with acute exacerbation Qualified Code(s): J44.1 - Chronic obstructive pulmonary disease with (acute) exacerbation Base Code: J44.9 - CHRONIC OBSTRUCTIVE PULMONARY DISEASE, UNSPECIFIED Comment : 01/31/18: - poor compliance with medication and oxygen. CXR: no evidence of infiltrates. Influenza A/B negative. - oxygen to maintain sats > 92% - albuterol nebs Q2H prn, duonebs Q4H, breo inhaler daily. Solumedrol 60mg IV daily - doxycycline 100mg BID - counseled on smoking cessation - needs annual influenza vaccin and check for pneumonia vaccine status. (2) Acute bronchitis Current Visit: Yes Status: Acute Base Code: J20.9 - ACUTE BRONCHITIS, UNSPECIFIED Comment: 01/31/18: - cough productive of yellow sputum. - cxr negative for infiltrate. - de-escalate abx and change to doxycycline 100mg BID - gaufenisin/dextromethorphan Q4H PRN for cough, Tylenol Q4h PRN - poor compliance with COPD medications. (3) Chronic back pain Current Visit: Yes Status: Acute Base Code: M54.9 - DORSALGIA, UNSPECIFIED; G89.29 - OTHER CHRONIC PAIN Comment: 01/31/18: - resume home dose of Ultram BID. (4) DVT (deep venous thrombosis) Current Visit: Yes Status: Acute Base Code: I82.409 - ACUTE EMBOLISM AND THOMBOS UNSP DEEP VN UNSP LOWER EXTREMITY Comment: 01/31/18: - Lovenox 40mg daily (5) Full code status Current Visit: Yes Status: Acute Base Code: Z78.9 - OTHER SPECIFIED HEALTH STATUS Comment: 01/31/18: - full code
[2018-01-31] MEDS: GUAIFENESIN/D-METH. 10 ML UDC PO PRN ×3 (09:32→19:50)
[2018-01-31] MEDS: TRAMADOL HCL 50 MG TABLET PO PRN ×2 (09:32→19:50)
[2018-01-31] MEDS ORDERED: METHYLPREDNISOLONE PF 125MG/VIAL IVP SCH (10:00)
[2018-01-31] MEDS ORDERED: AZITHROMYCIN 500 MG TABLET PO SCH (10:00)
[2018-01-31] MEDS: BREO (FLUTICASONE/VILANTEROL) 200MCG/25MCG INHALER INH SCH (10:18)
[2018-01-31] MEDS: CYCLOBENZAPRINE 10MG TABLET PO PRN (19:50)
[2018-01-31] MEDS ORDERED: CEFTRIAXONE 1GM/50ML BAG 1 GM/50 ML BAG IVPB SCH (20:00)
[2018-01-31] MEDS: DOXYCYCLINE HYCLATE 100 MG CAPSULE PO SCH (21:09)
[2018-02-01] MEDS: IPRATROPIUM/ALBUTEROL (0.5MG/3MG) NEB INH SCH ×3 (06:18→14:18)
[2018-02-01] MEDS: ACETAMINOPHEN 500 MG TABLET PO PRN ×2 (06:32→10:05)
[2018-02-01] MEDS: GUAIFENESIN/D-METH. 10 ML UDC PO PRN ×2 (06:32→10:04)
[2018-02-01 06:36] LABS: BASO % 0.2 % (0-6); EOS % 0.2 % (0-6); GRAN % 69.3 % (47-80); HEMATOCRIT 40.2 % (42.0-52.0); HEMOGLOBIN 13.8 gm/dl (14.0-18.0); LYMPH % 16.9 % (16-45); MEAN CORPUSCULAR HGB CONC 34.3 g/dl (32-36); MONO % 13.4 % (0-9); PLATELET COUNT 307 K/uL (130-400); RED BLOOD COUNT 4.57 M/uL (4.40-5.70); RED CELL DISTRIBUTION WIDTH 13.4 % (11.5-14.5); WHITE BLOOD COUNT W/O DIFF 6.2 K/uL (4.2-12.2)
[2018-02-01 06:42] LABS: MEAN CORPUSCULAR HEMOGLOBIN 30.1 pg (27-33)
[2018-02-01 06:56] LABS: BLOOD UREA NITROGEN 11 mg/dL (6-20); CREATININE 0.6 mg/dL (0.7-1.2); EST GLOMERULAR FILTRATION RATE > 60 mL/min; GLUCOSE,RANDOM 100 mg/dL (74-109)
[2018-02-01] MEDS: 0.9 % SODIUM CHLORIDE 1000ML 1,000 ML IV PRN (08:17)
--- NOTE | 2018-02-01 09:59 | Physician Progress Note ---
Subjective - Date Date of Physician Progress Note: 02/01/18 - Subjective Subjective Comment: The patient says his breathing is better but he has a cough and abdominal and chest pain when he coughs. Location: Abdomen, Chest Severity scale (1-10): 3 Quality: Aching Consistency: Intermittent Worsens with: Other (cough) Objective - Vital Signs Vital Signs: Vital Signs - Last 24 Hrs Temp Pulse Pulse Resp BP Pulse Ox 02/01/18 06:19 90 20 02/01/18 06:18 84 16 97 02/01/18 02:00 97.9 F 66 16 109/58 96 01/31/18 22:36 78 16 01/31/18 22:35 76 16 94 L 01/31/18 19:55 18 01/31/18 18:15 80 16 01/31/18 18:00 98.2 F 77 16 106/57 96 01/31/18 14:30 82 16 01/31/18 10:15 88 16 92 L 01/31/18 10:00 79 18 101/38 92 L - General General Appearance: Alert, Oriented x3, Cooperative, Moderate distress Limitations: No limitations - Head Head exam: Atraumatic, Normocephalic, Normal inspection Head exam detail: negative: Abrasion, Contusion, Zuniga's sign, General tenderness, Hematoma, Laceration - Eye Eye exam: Normal appearance. negative: Conjunctival injection, Periorbital swelling, Periorbital tenderness, Scleral icterus - ENT Ear exam: negative: Auricular hematoma, Auricular trauma Nasal Exam: negative: Active bleeding, Discharge, Dried blood, Foreign body Mouth exam: negative: Drooling, Laceration, Muffled voice, Tongue elevation - Neck Neck exam: Normal inspection. negative: Meningismus, Tenderness - Respiratory Respiratory exam: Decreased breath sounds. negative: Rales, Respiratory distress, Rhonchi, Stridor - Cardiovascular Cardiovascular Exam: Regular rate, Normal rhythm, Normal heart sounds - GI/Abdominal GI/Abdominal exam: Soft. negative: Rebound, Rigid, Tenderness - Rectal Rectal exam: Deferred - exam: Deferred - Extremities Extremities exam: Normal inspection. negative: Pedal edema, Tenderness - Back Back exam: Denies: CVA tenderness (R), CVA tenderness (L) - Neurological Neurological exam: Alert, Oriented X3 - Psychiatric Psychiatric exam: Normal affect, Normal mood - Skin Skin exam: Normal color. negative: Abrasion Type of lesion: negative: abrasion Assessment and Plan - Assessment and Plan (1) COPD (chronic obstructive pulmonary disease) Current Visit: Yes Status: Acute Qualifiers: COPD type: COPD with acute exacerbation Qualified Code(s): J44.1 - Chronic obstructive pulmonary disease with (acute) exacerbation Base Code: J44.9 - CHRONIC OBSTRUCTIVE PULMONARY DISEASE, UNSPECIFIED Comment : 02/01/18: - poor compliance with medication and oxygen. CXR: no evidence of infiltrates. Influenza A/B negative. - oxygen to maintain sats > 92%, maintaining sats on 2 liters.Trial without oxygen today. - albuterol nebs Q2H prn, duonebs Q4H, breo inhaler daily. Solumedrol 60mg IV daily to Po Prednisone 40mg daily. - doxycycline 100mg BID - counseled on smoking cessation - needs annual influenza vaccin and check for pneumonia vaccine status. (2) Acute bronchitis Current Visit: Yes Status: Acute Base Code: J20.9 - ACUTE BRONCHITIS, UNSPECIFIED Comment: 02/01/18: - cough productive of yellow sputum. - cxr negative for infiltrate. - de-escalate abx and change to doxycycline 100mg BID - gaufenisin/dextromethorphan Q4H PRN for cough, Tylenol Q4h PRN - poor compliance with COPD medications. (3) Chronic back pain Current Visit: Yes Status: Acute Base Code: M54.9 - DORSALGIA, UNSPECIFIED; G89.29 - OTHER CHRONIC PAIN Comment: 02/01/18: - resume home dose of Ultram BID. (4) DVT (deep venous thrombosis) Current Visit: Yes Status: Acute Base Code: I82.409 - ACUTE EMBOLISM AND THOMBOS UNSP DEEP VN UNSP LOWER EXTREMITY Comment: 02/01/18: - Lovenox 40mg daily (5) Full code status Current Visit: Yes Status: Acute Base Code: Z78.9 - OTHER SPECIFIED HEALTH STATUS Comment: 02/01/18: - full code Results - Labs Result Diagrams: 02/01/18 06:27 02/01/18 06:27 Labs Last 24 Hours: Laboratory Results - last 24 hr 02/01/18 02/01/18 06:27 06:27 WBC 6.2 RBC 4.57 Hgb 13.8 L Hct 40.2 L MCV 88.0 MCH 30.1 MCHC 34.3 RDW 13.4 Plt Count 307 MPV 10.0 Gran % 69.3 Lymphocytes % 16.9 Monocytes % 13.4 H Eosinophils % 0.2 Basophils % 0.2 Sodium 140 Potassium 4.0 Chloride 106 Carbon Dioxide 22.0 Anion Gap 12.0 BUN 11 Creatinine 0.6 L Estimated GFR > 60 Random Glucose 100 Calcium 8.6 DVT/PE Assessment - Risk for VTE Risk for VTE: Yes Risk Level: Moderate Risk Assessment Date: 01/31/18 Risk Assessment Time: 10:34 VTE Orders Placed or Will Be Placed: Yes - Active Medicaitons Current Medications: Current Medications Acetaminophen (Tylenol 500mg Tab) 1,000 mg PO Q6H PRN PRN Reason: PAIN - MILD(1-4)/FEVER Last Admin: 02/01/18 06:32 Dose: 1,000 mg Albuterol Sulfate (Albuterol Sulfate) 2.5 mg INH RESP.Q2H PRN PRN Reason: DIFFICULTY IN BREATHING Albuterol/Ipratropium (Duoneb) 3 ml INH RESP.Q4H.[facility] Last Admin: 02/01/18 06:18 Dose: 3 ml Cyclobenzaprine HCl (Flexeril) 10 mg PO QHS PRN PRN Reason: PAIN - MOD TO SEVERE (5-10) Last Admin: 01/31/18 19:50 Dose: 10 mg Doxycycline Hyclate (Vibramycin) 100 mg PO BID [facility] Last Admin: 01/31/18 21:09 Dose: 100 mg Guaifenesin (Robitussin Dm) 10 ml PO Q4H PRN PRN Reason: COUGH Last Admin: 02/01/18 06:32 Dose: 10 ml Sodium Chloride () 1,000 mls @ 125 mls/hr IV .Q8H PRN PRN Reason: LARGE VOLUME IV Last Infusion: 02/01/18 09:58 Dose: 125 mls/hr Ondansetron HCl (Zofran) 4 mg IVP Q6H PRN PRN Reason: NAUSEA Last Admin: 01/31/18 19:44 Dose: 4 mg Tramadol HCl (Ultram) 50 mg PO BID PRN PRN Reason: PAIN - MILD TO MODERATE (1-7) Last Admin: 01/31/18 19:50 Dose: 50 mg AMI Plan - Labs Result Diagrams: 02/01/18 06:27 02/01/18 06:27
[2018-02-01] MEDS: DOXYCYCLINE HYCLATE 100 MG CAPSULE PO SCH (10:04)
[2018-02-01] MEDS: TRAMADOL HCL 50 MG TABLET PO PRN (10:05)
[2018-02-01] MEDS: BREO (FLUTICASONE/VILANTEROL) 200MCG/25MCG INHALER INH SCH (10:11)
--- NOTE | 2018-02-01 16:59 | Discharge Summary ---
Providers Discharge Summary Date: 02/01/18 Date of admission: 01/30/18 21:14 Attending physician: LUZ MARINA BLANCO Primary care physician: THEA CORDOVA M.D. Physical Exam - Vital Signs Vital Signs: Vital Signs - Last 24 Hrs Temp Pulse Pulse Resp BP Pulse Ox 02/01/18 15:00 82 18 99 02/01/18 11:00 97.7 F 68 18 111/62 91 L 02/01/18 10:13 62 16 99 02/01/18 09:00 66 16 02/01/18 06:19 90 20 02/01/18 06:18 84 16 97 02/01/18 02:00 97.9 F 66 16 109/58 96 01/31/18 22:36 78 16 01/31/18 22:35 76 16 94 L 01/31/18 19:55 18 01/31/18 18:15 80 16 01/31/18 18:00 98.2 F 77 16 106/57 96 - General General Appearance: Alert, Oriented x3, Cooperative, Moderate distress Limitations: No limitations - Head Head exam: Atraumatic, Normocephalic, Normal inspection Head exam detail: negative: Abrasion, Contusion, Zuniga's sign, General tenderness, Hematoma, Laceration - Eye Eye exam: Normal appearance. negative: Conjunctival injection, Periorbital swelling, Periorbital tenderness, Scleral icterus - ENT Ear exam: negative: Auricular hematoma, Auricular trauma Nasal Exam: negative: Active bleeding, Discharge, Dried blood, Foreign body Mouth exam: negative: Drooling, Laceration, Muffled voice, Tongue elevation - Neck Neck exam: Normal inspection. negative: Meningismus, Tenderness - Respiratory Respiratory exam: Decreased breath sounds. negative: Rales, Respiratory distress, Rhonchi, Stridor - Cardiovascular Cardiovascular Exam: Regular rate, Normal rhythm, Normal heart sounds Peripheral Pulses: 3+: Radial (R), Radial (L), Dorsalis Pedis (R), Dorsalis Pedis (L) - GI/Abdominal GI/Abdominal exam: Soft. negative: Rebound, Rigid, Tenderness - Rectal Rectal exam: Deferred - exam: Deferred - Extremities Extremities exam: Normal inspection. negative: Pedal edema, Tenderness - Back Back exam: Denies: CVA tenderness (R), CVA tenderness (L) - Neurological Neurological exam: Alert, Oriented X3 - Psychiatric Psychiatric exam: Normal affect, Normal mood - Skin Skin exam: Normal color. negative: Abrasion Type of lesion: negative: abrasion Hospitalization - Hospitalization Admission Diagnosis: CAP. COPD exacerbation - Problem List/Discharge Diagnosis (1) COPD (chronic obstructive pulmonary disease) Status: Acute Discharge Diagnosis: COPD type: COPD with acute exacerbation Qualified Code(s): J44.1 - Chronic obstructive pulmonary disease with (acute) exacerbation Base Code: J44.9 - CHRONIC OBSTRUCTIVE PULMONARY DISEASE, UNSPECIFIED Comment : 02/01/18: - poor compliance with medication and oxygen. CXR: no evidence of infiltrates. Influenza A/B negative. - oxygen to maintain sats > 92%, maintaining sats on 2 liters.Trial without oxygen today. - albuterol nebs Q2H prn, duonebs Q4H, breo inhaler daily. Solumedrol 60mg IV daily to Po Prednisone 40mg daily. - doxycycline 100mg BID - counseled on smoking cessation - needs annual influenza vaccin and check for pneumonia vaccine status. (2) Acute bronchitis Status: Acute Base Code: J20.9 - ACUTE BRONCHITIS, UNSPECIFIED Comment: 02/01/18: - cough productive of yellow sputum. - cxr negative for infiltrate. - de-escalate abx and change to doxycycline 100mg BID - gaufenisin/dextromethorphan Q4H PRN for cough, Tylenol Q4h PRN - poor compliance with COPD medications. (3) Chronic back pain Status: Acute Base Code: M54.9 - DORSALGIA, UNSPECIFIED; G89.29 - OTHER CHRONIC PAIN Comment: 02/01/18: - resume home dose of Ultram BID. (4) DVT (deep venous thrombosis) Status: Acute Base Code: I82.409 - ACUTE EMBOLISM AND THOMBOS UNSP DEEP VN UNSP LOWER EXTREMITY Comment: 02/01/18: - Lovenox 40mg daily (5) Full code status Status: Acute Base Code: Z78.9 - OTHER SPECIFIED HEALTH STATUS Comment: 02/01/18: - full code - Hospitalization Course Disposition: Home, Self-Care Hospital Course: Mr. Palumbo is a 57 y/o male who presents with a 3 day history of cough productive of yellow sputum, fever and chills. The patient says that he has COPD and has not been compliant with his medication or oxygen use. He says that when he uses his inhaler he doesn't feel well and he has not used any other over the counter medication over the past few days. He has a long smoking history of 46 years and and says that he quit smoking 2 months ago. He denies chest pain, shortness of breath or headaches. ED course: CXR: shows hyperinflation consistent with COPD Vitals: BP 106/64, HR 89, Temp 100.1, RR 24, Sats 96% 2L 02/01/18: The patient continued to receive respiratory therapy with duonebs, albuterol PRN and ws started on Doxycycline 100mg BID. He symptomatically improved and was able to maintain saturations above 92% without oxygen. On examination the patient is awake, alert and ambulating in the hallway without any significant respiratory distress. Procedures: Imaging and X-Rays 01/30/18 19:28 CHEST 2 VIEWS [RAD] Stat Cardiology Procedures 01/30/18 18:58 EKG NOW Abnormal Labs: Abnormal Lab Results 01/30/18 01/30/18 02/01/18 Range/Units 19:10 19:10 06:27 Hgb 13.8 L (14.0-18.0) gm/dl Hct 40.2 L (42.0-52.0) % Neutrophils % 87.0 H (47-80) % Lymphocytes % 3.4 L (16-45) % Monocytes % 13.4 H (0-9) % Lymphocytes 3.0 L (16-45) % Sodium 135 L (136-145) mmol/L Creatinine (0.7-1.2) mg/dL Random Glucose 172 H (74-109) mg/dL 02/01/18 Range/Units 06:27 Hgb (14.0-18.0) gm/dl Hct (42.0-52.0) % Neutrophils % (47-80) % Lymphocytes % (16-45) % Monocytes % (0-9) % Lymphocytes (16-45) % Sodium (136-145) mmol/L Creatinine 0.6 L (0.7-1.2) mg/dL Random Glucose (74-109) mg/dL Condition at Discharge: (2) Stable Discharge Medications - Discharge Medications Prescriptions: Guaifenesin [Mucinex] 600 mg PO Q12HR #10 tab.er.12h Acetaminophen [Tylenol 500Mg Tab] 1,000 mg PO Q6H PRN #20 tablet PRN Reason: Pain - Mild(1-4)/Fever Doxycycline Hyclate [Vibramycin] 100 mg PO BID #12 capsule Prednisone [Prednisone 20Mg] 40 mg PO DAILYWM #8 tab Home Medications: Ambulatory Orders Acetaminophen [Tylenol 500Mg Tab] 1,000 mg PO Q6H PRN #20 tablet 02/01/18 [Last Taken Unknown] Doxycycline Hyclate [Vibramycin] 100 mg PO BID #12 capsule 02/01/18 [Last Taken Unknown] Guaifenesin [Mucinex] 600 mg PO Q12HR #10 tab.er.12h 02/01/18 [Last Taken Unknown] Prednisone [Prednisone 20Mg] 40 mg PO DAILYWM #8 tab 02/01/18 [Last Taken Unknown] Discharge Plan - Discharge Instructions Instructions: Acute Bronchitis (GEN), COPD (Chronic Obstructive Pulmonary Disease) (DC), Community Acquired Pneumonia (DC) Additional Instructions: Follow up with your PCP within the next 7 days. Continue taking your medication - Doxycycline 100mg twice daily for the next 6 days. - Prednisone 40mg daily x 4 days. - Mucinex 600mg twice daily. - Tylenol 500mg every 6 hours as needed. For all other pain medications please have these filled with your primary care doctor. If you have worsening symptoms please return to the ED. Quality Measures - Quality Measures Quality Measures: Documentation of Current Medications in Medical Record, Screening for High Blood Pressure and F/U Documented - Current Medications Quality Measure: Measure #130: Documentation of Current Medications Documentation of Current Medications: <Current Medications Documented/Reviewed> [G8427] - Blood Pressure Screening Quality Measure: Screening for High Blood Pressure and Follow-Up Documented Does Patient Have Any of the Following: No Blood Pressure Classification: Pre-Hypertensive BP Reading Systolic Measurement: 136 Diastolic Measurement: 69 Screening for High Blood Pressure: < Pre-Hypertensive BP, F/U Documented > [ G8950] Pre-Hypertensive Follow-up Interventions: Lifestyle modifications. Lifestyle Modification: Dietary Sodium Restriction, Increased Physical Activity - Elder Abuse Suspicion Index EASI Reference Information: Shannan LAW, Lucho C, Sarah D, Allyson Das.Development and validation of a tool to assist physicians identification of elder abuse: The Elder Abuse Suspicion Index (EASI ). Journal of Elder Abuse and Neglect, 2008; 20 (3): 276-300.
[2018-02-02] MEDS ORDERED: PREDNISONE 20 MG TAB PO SCH (08:00)
== END 2018-02-01 16:30 | disposition home or self-care (01) ==
LOC: ER 18:56 → MEDSURG 21:14
PROVIDERS: ADMIT Internal Medicine; ATTEND Internal Medicine
DX: J44.1 Chronic obstructive pulmonary disease with (acute) exacerbation (principal); Z87.891 Personal history of nicotine dependence; J20.9 Acute bronchitis, unspecified; M54.9 Dorsalgia, unspecified; Z86.718 Personal history of other venous thrombosis and embolism; Z79.01 Long term (current) use of anticoagulants; Z78.9 Other specified health status
CPT/HCPCS: 99285 ×2; 96365; 96375; 85025; 80048; 80053; 87400; 84484; 85027; 71046; 94640 ×5; 94761 ×2; 93005; 93010; 94760; G0378 ×3; J1885; J2405; J7512; 99217; 99220; J2930; J7030

== ENCOUNTER 2018-07-05 12:48 | Emergency (ER) | payer MEDICARE ==
[2018-07-05] MEDS ORDERED: METHYLPREDNISOLONE PF 125MG/VIAL IVP ONE (13:30)
[2018-07-05 13:59] LABS: ABSOLUTE NEUTROPHIL COUNT 8.84; BASO % 0.6 % (0-6); EOS % 2.4 % (0-6); GRAN % 75.6 % (47-80); HEMOGLOBIN 17.2 gm/dl (14.0-18.0); LYMPH % 15.2 % (16-45); MEAN CELL VOLUME 84.3 fl (81-97); MEAN CORPUSCULAR HGB CONC 34.4 g/dl (32-36); MEAN PLATELET VOLUME 10.4 fl (7.4-10.4); MONO % 6.2 % (0-9); PLATELET COUNT 398 K/uL (130-400); RED BLOOD COUNT 5.93 M/uL (4.40-5.70); RED CELL DISTRIBUTION WIDTH 13.9 % (11.5-14.5); WHITE BLOOD COUNT W/O DIFF 11.7 K/uL (4.2-12.2)
[2018-07-05 14:01] LABS: BLOOD UREA NITROGEN 11 mg/dL (6-20)
[2018-07-05 14:02] LABS: CREATININE 0.7 mg/dL (0.7-1.2); EST GLOMERULAR FILTRATION RATE > 60 mL/min; TOTAL PROTEIN 7.4 g/dL (6.6-8.7)
[2018-07-05 14:04] LABS: GLUCOSE,RANDOM 86 mg/dL (74-109)
[2018-07-05 14:07] LABS: ALB/GLOB RATIO 1.5 (1.1-1.8); ALBUMIN 4.4 g/dL (4.0-5.0); ALKALINE PHOSPHATASE 102 U/L (40-129); ALT/SGPT 9 U/L (<41); AST/SGOT 14 U/L (10.0-50.0)
[2018-07-05] MEDS: IPRATROPIUM/ALBUTEROL (0.5MG/3MG) NEB INH ONE (14:08)
[2018-07-05 14:09] LABS: NTpro B-NATRIURETIC PEPTIDE 28.48 pg/mL (<125)
--- NOTE | 2018-07-05 15:07 | Emergency Department Record ---
History of Present Illness - General Chief Complaint: Difficulty Breathing Stated Complaint: BRE Time Seen by Provider: 07/05/18 12:51 Source: Patient Mode of Arrival: Ambulatory Limitations: No limitations - History of Present Illness Initial Comments: pt came in for increasing sob. he has copd. no fever. MD Complaint: Anxiety, Cough, Shortness of breath Onset/Timin -: Days(s) Severity: Moderate Quality: Sharp Consistency: Constant Improves With: Nothing Worsens With: Coughing, Inspiration Known History Of: COPD Associated Symptoms: Denies other symptoms Treatments Prior to Arrival: Bronchodilator - Related Data Home Oxygen Therapy: No Previous Rx's Medication Instructions Recorded Prednisone [Prednisone 20Mg] 20 mg PO Q12HR #8 tab 07/05/18 Allergies Allergy/AdvReac Type Severity Reaction Status Date / Time No Known Drug Allergies Allergy Verified 07/05/18 12:52 Travel Screening - Travel/Exposure Within Last 30 Days Have you traveled within the last 30 days?: No - Travel/Exposure Within Last Year Have you traveled outside the [place] in the last year?: No - Additonal Travel Details Have you been exposed to anyone with a communicable illness?: No - Travel Symptoms Symptom Screening: None Review of Systems Reviewed: No additional complaints except as noted below Constitutional: Reports: As per HPI. Denies: Chills, Fever, Malaise, Night sweats, Weakness, Weight change Eyes: Reports: As per HPI. Denies: Eye discharge, Eye pain, Photophobia, Vision change ENT: Reports: As per HPI. Denies: Congestion, Dental pain, Ear pain, Epistaxis, Hearing loss, Throat pain Respiratory: Reports: As per HPI, Cough, Dyspnea. Denies: Hemoptysis, Stridor, Wheezes Cardiovascular: Reports: As per HPI. Denies: Arrhythmia, Chest pain, Dyspnea on exertion, Edema, Murmurs, Orthopnea, Palpitations, Paroxysmal nocturnal dyspnea, Rheumatic Fever, Syncope Endocrine: Reports: As per HPI. Denies: Fatigue, Heat or cold intolerance, Polydipsia, Polyuria Gastrointestinal: Reports: As per HPI. Denies: Abdominal pain, Constipation, Diarrhea, Hematemesis, Hematochezia, Melena, Nausea, Vomiting Genitourinary: Reports: As per HPI. Denies: Dysuria, Frequency, Hematuria, Incontinence, Retention, Testicular pain, Testicular mass, Urgency Musculoskeletal: Reports: As per HPI. Denies: Arthralgia, Back pain, Gout, Sonia int swelling, Myalgia, Neck pain Skin: Reports: As per HPI. Denies: Bruising, Change in color, Change in hair/nails, Lesions, Pruritus, Rash Neurological: Reports: As per HPI. Denies: Abnormal gait, Confusion, Headache, Numbness, Paresthesias, Seizure, Tingling, Tremors, Vertigo, Weakness Psychiatric: Reports: As per HPI. Denies: Anxiety, Auditory hallucinations, Depression, Homicidal thoughts, Suicidal thoughts, Visual hallucinations Hematological/Lymphatic: Reports: As per HPI. Denies: Anemia, Blood Clots, Easy bleeding, Easy bruising, Swollen glands Past Medical History - SOCIAL HISTORY Smoking Status: Former smoker Alcohol Use: None Drug Use: Occasional Drug Use Detail:: Marijuana - RESPIRATORY Hx Respiratory Disorders: Yes Hx COPD: Yes Hx Sleep Apnea: Yes - CARDIOVASCULAR Hx Cardio Disorders: Yes Hx Heart Attack: Yes - NEURO Hx Neuro Disorders: No - GI Hx GI Disorders: No - Hx Genitourinary Disorders: Yes Hx Bladder Problem: Yes (Tumor removed) - ENDOCRINE Hx Endocrine Disorders: No - MUSCULOSKELETAL Hx Musculoskeletal Disorders: Yes Hx Back Injury: Yes - PSYCH Hx Psych Problems: Yes Hx Anxiety: Yes (now resolved) Hx Depression: Yes - HEMATOLOGY/ONCOLOGY Hx Hematology/Oncology Disorders: No Family Medical History Any Significant Family History?: Yes Hx Cancer: Mother, Brother/Sister Hx Diabetes: Father Hx Heart Disease: Mother Hx HTN: Mother Hx Kidney Disease: Brother/Sister Hx Resp Disorders: Father Physical Exam - General General Appearance: Alert, Oriented x3, Cooperative, Mild distress - Head Head exam: Normal inspection - Eye Eye exam: Normal appearance, PERRL, EOMI Pupils: Normal accommodation - ENT ENT exam: Normal exam, Mucous membranes moist, Normal external ear exam, Normal orophraynx Ear exam: Normal external inspection. negative: External canal tenderness Nasal Exam: Normal inspection. negative: Discharge, Sinus tenderness Mouth exam: Normal external inspection, Tongue normal Teeth exam: Normal inspection. negative: Dental caries Throat exam: Normal inspection. negative: Tonsillar erythema, Tonsillar exudate - Neck Neck exam: Normal inspection, Full ROM. negative: Tenderness - Respiratory Respiratory exam: Decreased breath sounds. negative: Respiratory distress - Cardiovascular Cardiovascular Exam: Regular rate, Normal rhythm, Normal heart sounds - GI/Abdominal GI/Abdominal exam: Soft, Normal bowel sounds. negative: Tenderness - Rectal Rectal exam: Deferred - exam: Deferred - Extremities Extremities exam: Normal inspection, Full ROM, Normal capillary refill. negative: Tenderness - Back Back exam: Reports: Normal inspection, Full ROM. Denies: Muscle spasm, Rash noted, Tenderness - Neurological Neurological exam: Alert, CN II-XII intact, Normal gait, Oriented X3 - Psychiatric Psychiatric exam: Normal affect, Normal mood - Skin Skin exam: Dry, Intact, Normal color, Warm Course Vital Signs 07/05/18 07/05/18 12:55 14:09 Temperature 98.1 F Pulse Rate 92 H 95 H Respiratory 24 26 H Rate Blood Pressure 133/98 Pulse Ox 99 Medical Decision Making - Lab Data Result diagrams: 07/05/18 13:20 07/05/18 13:20 Lab Results 07/05/18 07/05/18 07/05/18 Range/Units 13:20 13:20 13:20 WBC 11.7 (4.2-12.2) K/uL RBC 5.93 H (4.40-5.70) M/uL Hgb 17.2 (14.0-18.0) gm/dl Hct 50.0 (42.0-52.0) % MCV 84.3 (81-97) fl MCH 29.0 (27-33) pg MCHC 34.4 (32-36) g/dl RDW 13.9 (11.5-14.5) % Plt Count 398 (130-400) K/uL MPV 10.4 (7.4-10.4) fl Gran % 75.6 (47-80) % Lymphocytes % 15.2 L (16-45) % Monocytes % 6.2 (0-9) % Eosinophils % 2.4 (0-6) % Basophils % 0.6 (0-6) % Absolute Neutrophils 8.84 D-Dimer 0.39 (0-0.59) mg/L FEU Sodium 138 (136-145) mmol/L Potassium 4.2 (3.4-4.5) mmol/L Chloride 99 (98-107) mmol/L Carbon Dioxide 27.0 (22-29) mmol/L Anion Gap 12.0 (7-16) BUN 11 (6-20) mg/dL Creatinine 0.7 (0.7-1.2) mg/dL Estimated GFR > 60 mL/min Random Glucose 86 (74-109) mg/dL Calcium 9.9 (8.6-10.0) mg/dL Total Bilirubin 0.70 (0.2-1.0) mg/dL AST 14 (10.0-50.0) U/L ALT 9 (<41) U/L Alkaline Phosphatase 102 (40-129) U/L NT-Pro-B Natriuret Pep 28.48 (<125) pg/mL Total Protein 7.4 (6.6-8.7) g/dL Albumin 4.4 (4.0-5.0) g/dL Globulin 3.0 (1.4-4.8) gm/dL Albumin/Globulin Ratio 1.5 (1.1-1.8) Disposition Disposition: Discharge Clinical Impression: COPD (chronic obstructive pulmonary disease) Qualifiers: COPD type: unspecified COPD Qualified Code(s): J44.9 - Chronic obstructive pulmonary disease, unspecified Disposition: Home, Self-Care Condition: (1) Good Instructions: COPD (Chronic Obstructive Pulmonary Disease) (ED) Additional Instructions: follow up with family doctor. return sooner if worse Prescriptions: Prednisone [Prednisone 20Mg] 20 mg PO Q12HR #8 tab Quality - Quality Measures Quality Measures: N/A - Blood Pressure Screening Does Patient Have Any of the Following: No Blood Pressure Classification: Hypertensive Reading Systolic Measurement: 133 Diastolic Measurement: 98 Screening for High Blood Pressure: < Pre-Hypertensive BP, F/U Documented > [G8950] Pre-Hypertensive Follow-up Interventions: Follow-up with rescreen every year.
--- NOTE | 2018-07-07 01:12 | RADIOLOGY REPORT ---
EXAM: CHEST 2 VIEWS HISTORY: COUGH, CONGESTION, SHORTNESS OF BREATH, HISTORY OF COPD. FORMER SMOKER. TECHNIQUE: Two views of the chest. COMPARISON: Chest radiograph 01/30/2018. FINDINGS: Cardiac silhouette within normal size limits. Lungs are hyperinflated. Mild scattered chronic parenchymal opacities in both lungs. No new focal pulmonary opacification. No pleural effusion or pneumothorax. Diffuse thoracic spondylosis with bridging osteophytes. Possible incompletely visualized chondroid lesion or bone infarction in the proximal left humeral diaphysis, as noted previously. IMPRESSION: 1. NO ACUTE LUNG FINDINGS. 2. PULMONARY HYPERINFLATION COMPATIBLE WITH COPD. 3. INCIDENTAL NOTE OF A POSSIBLE BONE INFARCTION OR CHONDROID LESION IN THE PROXIMAL LEFT HUMERUS, ONLY PARTIALLY VISUALIZED, NOTED ON COMPARISON CHEST RADIOGRAPH WELL. JOB NUMBER: [id number] MTDD
== END 2018-07-05 15:18 | disposition home or self-care (01) ==
LOC: ER 12:48
DX: J44.9 Chronic obstructive pulmonary disease, unspecified (principal); R06.02 Shortness of breath; I25.2 Old myocardial infarction; Z87.891 Personal history of nicotine dependence
CPT/HCPCS: 71046; 80053; 83880; 85025; 85379; 93005; 93010; 94640; 96374; 99284; J2930